=== PATIENT | male | born 1965 | race African-American/Black ===

== ENCOUNTER → 2020-01-13 | Outpatient (CLI) | payer BC ==
--- NOTE | 2020-01-13 13:01 | RAD ---
TESTICULAR/SCROTUM: 01/13/2020 9:00 AM INDICATION: 54 years old Male. Left testicular swelling. COMPARISON: None. FINDINGS: There is skin thickening and subcutaneous edema which appears diffuse. Right: Testicle: Normal in echotexture without focal lesion. Size: 3.6 x 2.1 x 1.4 cm. Flow: Normal color Doppler flow pattern. Epididymis: Normal in size and echotexture without focal lesion. Hydrocele: None. Varicocele: Moderate. Left: Testicle: Normal in echotexture without focal lesion. Size: 3.4 x 2.4 x 1.6 cm. Flow: Normal color Doppler flow pattern. Epididymis: Normal in size and echotexture without focal lesion. Hydrocele: None. Varicocele: Moderate. IMPRESSION: 1. Perfusion is noted the testicles bilaterally at the time of imaging. 2. Moderate-sized bilateral varicoceles. 3. Mild skin thickening with subcutaneous edema. Electronically signed by: Elizabeth Fulton MD (01/13/2020 12:58 PM) [id number]
== END | disposition home or self-care (01) ==
LOC: US 09:01
PROVIDERS: ATTEND Specialist
DX: I86.1 Scrotal varices (principal); N50.89 Other specified disorders of the male genital organs
CPT/HCPCS: 76870